=== PATIENT | female | born 1995 | race African-American/Black ===

== ENCOUNTER 2019-01-31 03:10 | Emergency (ER) | payer OTHER ==
[~2019-01-31] VITALS: Ht 165.1 cm; Wt 72.6 kg
[~2019-01-31 03:10] MED LIST: NAPROSYN500 MG PO; NOHOMEMEDICATIONS; NORCO 5-325 TA1 EACH PO; NORFLEX100 MG PO; SENNA-S TABLET1 EACH PO
[2019-01-31] MEDS ORDERED: NOHOMEMEDICATIONS (03:14)
[2019-01-31 03:57] LABS: ABSOLUTE NEUTROPHILS 2.3 thou/uL (1.4-8.2); BASOPHILS 0.6 % (0.0-2.0); EOSINOPHILS 2.5 % (0.0-3.0); HEMATOCRIT 39.6 % (37.0-47.0); HEMOGLOBIN 13.2 gm/dL (12.0-15.0); LYMPHOCYTES 46.3 % (24.0-44.0); MCH 29.7 pg (26.0-34.0); MCHC 33.2 g/dL (28.0-37.0); MCV 89.3 fL (80.0-100.0); MONOCYTES 8.9 % (1.0-8.0); PLATELET COUNT 303 thou/uL (150-400); POLYS 41.7 % (36.0-66.0); RBC 4.44 mil/uL (4.20-5.00); RDW 13.3 % (10.5-14.5); WBC 5.6 thou/uL (4.0-11.0)
[2019-01-31 04:06] LABS: ANION GAP 12 mmol/L (7-16); BUN 18 mg/dL (7-18); CHLORIDE 101 mmol/L (98-107); CO2 22 mmol/L (21-32); CREATININE 0.7 mg/dL (0.6-1.0); GLUCOSE 93 mg/dL (74-106); POTASSIUM 3.5 mmol/L (3.5-5.1); SODIUM 135 mmol/L (136-145)
[2019-01-31 04:08] LABS: TROPONIN-I <0.06 ng/mL (<0.06)
[2019-01-31 05:05] VITALS: BP 106/71
--- NOTE | 2019-01-31 10:57 | EKG ---
[place] [address] [facility] [place] [address] ELECTROCARDIOGRAM REPORT Name: MINNIE PATRICK Room #: DEP Xuan#: [id number] Admission: 01/31/19 Attend Phys: Discharge: 01/31/19 Date of : [birth year] Report #: [id number] THIS REPORT FOR: //name// [facility] ED Test Date: 2019-01-31 Test Time: 04:03:54 Pat Name: MINNIE PATRICK Department: Room: Gender: F Utility Locate Technician: CHAO : 1995 Requested By: Yolie Espinal Order Number: [id number] MD: Russel Aviles Measurements Intervals [place] Rate: 70 P: 49 OK: 178 QRS: -1 QRSD: 90 T: 17 QT: 379 QTc: 409 Interpretive Statements Sinus rhythm Nonspecific T-wave abnormality Compared to ECG 11/10/2015 10:51:16 No significant changes Electronically Signed On 01-31-2019 10:56:56 CDT by Russel Aviles [email or web address] <ELECTRONICALLY SIGNED> By: Russel Aviles MD 01/31/19 [id number] Russel Aviles MD /ROBBIE
== END 2019-01-31 05:13 | disposition home or self-care (01) ==
LOC: ER 03:10
PROVIDERS: Emergency Medicine
DX: R07.89 Other chest pain (principal); R06.00 Dyspnea, unspecified; Z90.89 Acquired absence of other organs